=== PATIENT | male | born 1955 | race Caucasian/White ===

== ENCOUNTER 2023-11-07 19:28 | Inpatient (IN) | payer MEDICARE, OTHER, SELFPAY ==
--- NOTE | 2023-11-07 16:57 | HPS.HSE ---
Family Physician
-
Family Physician: INTERVIEWE UNKNOWN - PT NOT
Chief Complaint
-
gastric outlet obstruction
History of Present Illness
68 y/o M hx of Afib, glaucoma transferred from [facility] to For advanced endoscopic evaluation. Patient has a hx of GERD and recent experienced pressors in the upper abdomen after eating and also regurgitation. These symptoms improved with eating
smaller meals. He is known to GI and was planned for EGD/GES. On 11/05 he was admitted to [facility] for 2-3 day history of intractable n/v and pain. No blood was seen. He had normal BMs. Due to the chronic nature of symptoms,
patient lost 30 pounds in [address] imaging in [facility] showed dilated stomach with normal caliber SB concerning for GOO. 2 NGT placement attempts were unsuccessful.
Medical History
Past Medical History
Past Medical History: Reports Arrhythmia (Afib) and GERD
Past Surgical History: Reports Cholecystectomy
Social History
Tobacco: Former Smoker
Alcohol: None
Drug: None
Personal:
Family History
Family History: Cancer (Stomach cancer)
Allergies / Home Medications
Allergies reflects when Allergies were last updated in [facility].
Home Medications with original date entered in [facility]
Allergy/Medication List:
Allergies
Allergy/AdvReac Type Severity Reaction Status Date / Time
shellfish derived Allergy Mild Rash Verified 11/07/23 17:05
cardizem Allergy Severe Anaphylaxis Uncoded 11/07/23 17:05
Home Medications
brimonidine 0.2 %-timolol 0.5 % eye drops 1 drp ophthalmic (eye) BID 11/07/23
ferrous sulfate 325 mg (65 mg iron) tablet 325 mg PO DAILY 11/07/23
metoprolol tartrate 50 mg tablet (Lopressor) 25 mg PO DAILY 11/07/23
netarsudil 0.02 % eye drops (Rhopressa) 1 drp ophthalmic (eye) QPM 11/07/23
omeprazole 20 mg capsule,delayed release 20 mg PO DAILY 11/07/23
Review of Systems
-
A 12 point ROS was completed and negative except as noted: Yes
Physical Exam
Physical Exam
General: No Apparent Distress
HEENT: NormoCephalic and Anicteric
Respiratory: No Rales or Rhonchi
Cardiac: S1/S2 and Regular Rhythm
Musculoskeletal: No Clubbing
Neuro: AO x 3
Hematologic/Lymphatic: No Lymphadenopathy
Psych: Calm
Data Reviewed
-
Lab Data: Labs Reviewed by me
Old Records: Reviewed
Impression/Plan
-
Assessment:
Gastric outlet obstruction
- records reviewed; upload CT to radiology here for GI review
- consult GI for endoscopic evaluation
- 2x NGT placement failed @ [facility] to attempt again here
- strict NPO but ok for ice chips to moisten mouth
- pain control, anti-emetics
- PPI IV BID
Recent C. Diff infection
- complete 14 day Vanco course 1.5 months ago
- monitor for diarrhea
Parox Afib
- only rate controlled
- not on ASA or OAC (CHADSvasc 1)
DVT ppx: Lovenox
Code: Full
[2023-11-07 16:59] VITALS: BP 171/93
[2023-11-07] MEDS: D5/0.9% SODIUM CHLORIDE 1000 IV ×2 (17:41→20:29)
[2023-11-07] MEDS: MORPHINE SULFATE 2 MG IV (17:50)
[2023-11-07 17:55] VITALS: BMI 23.0
[2023-11-07 18:00] VITALS: BP 143/85
[2023-11-07 18:10] VITALS: BMI 23.0
[2023-11-07 18:43] LABS: % Basophils 0.2 % (0-2); % Eosinophils 10.5 % (0-6); % Immature Granulocytes 0.2 % (0-0.5); % Lymphocytes 22.1 % (20.5-51.1); % Monocytes 8.8 % (1.7-9.3); % Neutrophils 58.2 % (42.2-75.2); Absolute Eosinophils 0.6 10^3/uL (0-0.7); Absolute Lymphocytes 1.2 10^3/uL (1.2-3.4); Absolute Monocytes 0.5 10^3/uL (0.1-0.6); Absolute Neutrophils 3.1 10^3/uL (1.4-6.5); Hematocrit 40.8 % (39.0-52.0); Hemoglobin 14.4 g/dL (13.0-18.0); Mean Corp Hgb Conc. 35.3 g/dL (33.0-37.0); Mean Corpuscular Hgb 30.2 pg (27.0-31.0); Mean Corpuscular Volume 85.5 fL (80.0-94.0); Mean Platelet Volume 9.1 fL (7.4-10.4); Nucleated Red Blood Cells % 0 % (-); Platelet Count 199 10^3/uL (130-400); Red Blood Cell Count 4.77 10^6/uL (4.70-6.10); Red Cell Dist. Width 12.5 % (11.5-14.5); White Blood Cell Count 5.3 10^3/uL (4.8-10.8)
[2023-11-07 19:07] LABS: ALT (SGPT) 22 U/L (0-50); AST (SGOT) 36 U/L (17-59); Albumin 3.2 g/dl (3.5-5.0); Alkaline Phosphatase 68 U/L (38-126); Blood Urea Nitrogen 6 mg/dl (9-20); Calcium 8.7 mg/dl (8.4-10.2); Carbon Dioxide 25 mmol/L (22-30); Chloride 104 mmol/L (98-107); Estimated Creatinine Clearance > 125 ml/min; Glucose 90 mg/dl (70-99); Potassium 3.6 mmol/L (3.5-5.1); Sodium 137 mmol/L (135-145); Total Bilirubin 1.8 mg/dl (0.2-1.3); Total Protein 5.4 g/dl (6.3-8.2); eGFR > 60.00
--- NOTE | 2023-11-07 19:30 | PTCARENOTE ---
Patient arrived to unit at 1700 from [facility].
Patient here with gastric outlet syndrome/concern for obstruction, pending consultation by GI. [facility] to [facility] two NG Tubes.
This RN attempted R Nare NG Tube, 14fr. Successfully placed however no obvious bile. Abd XR obtained which revealed in distal esophagus, advanced further and bile now present in tube. Repeat Abd XR to be obtained.
[2023-11-07] MEDS: PROTONIX IV 40 MG IV (20:27)
[2023-11-07] MEDS: NSS (PRESERVATIVE FREE) 10 ML IV (20:28)
[2023-11-07] MEDS: COMBIGAN EYE DROPS 1 DROP OPHTH (20:28)
[2023-11-07 20:47] VITALS: BP 153/77
[2023-11-08] VITALS (7 sets, daily range): BP systolic 135–153; BP diastolic 60–88; BMI 23.0
[2023-11-08 06:21] LABS: % Basophils 0.4 % (0-2); % Eosinophils 10.1 % (0-6); % Immature Granulocytes 0.2 % (0-0.5); % Lymphocytes 17.9 % (20.5-51.1); % Monocytes 9.9 % (1.7-9.3); % Neutrophils 61.5 % (42.2-75.2); Absolute Eosinophils 0.6 10^3/uL (0-0.7); Absolute Monocytes 0.6 10^3/uL (0.1-0.6); Absolute Neutrophils 3.4 10^3/uL (1.4-6.5); Hematocrit 39.7 % (39.0-52.0); Hemoglobin 13.8 g/dL (13.0-18.0); Mean Corp Hgb Conc. 34.8 g/dL (33.0-37.0); Mean Corpuscular Hgb 30.7 pg (27.0-31.0); Mean Corpuscular Volume 88.2 fL (80.0-94.0); Mean Platelet Volume 9.2 fL (7.4-10.4); Nucleated Red Blood Cells % 0 % (-); Platelet Count 163 10^3/uL (130-400); Red Cell Dist. Width 12.5 % (11.5-14.5); White Blood Cell Count 5.5 10^3/uL (4.8-10.8)
[2023-11-08 06:50] LABS: ALT (SGPT) 18 U/L (0-50); AST (SGOT) 29 U/L (17-59); Albumin 2.8 g/dl (3.5-5.0); Alkaline Phosphatase 61 U/L (38-126); Blood Urea Nitrogen 6 mg/dl (9-20); Calcium 8.5 mg/dl (8.4-10.2); Carbon Dioxide 29 mmol/L (22-30); Chloride 103 mmol/L (98-107); Estimated Creatinine Clearance 112 ml/min; Glucose 92 mg/dl (70-99); Potassium 3.8 mmol/L (3.5-5.1); Sodium 137 mmol/L (135-145); Total Bilirubin 1.5 mg/dl (0.2-1.3); Total Protein 5.1 g/dl (6.3-8.2); eGFR > 60.00
[2023-11-08] MEDS: NSS (PRESERVATIVE FREE) 10 ML IV ×2 (07:46→19:22)
[2023-11-08] MEDS: PROTONIX IV 40 MG IV ×2 (07:47→19:22)
[2023-11-08] MEDS: COMBIGAN EYE DROPS 1 DROP OPHTH ×2 (07:48→21:00)
--- NOTE | 2023-11-08 08:29 | CON.GI ---
Addendum entered and electronically signed by Deshawn Yoder MD 11/08/23 17:25:
I saw and examined the patient.
The ELECTRON BEAM MACHINE WELDER SETTER or PA's note was reviewed and I agree with the note.
Comment: 68-year-old male past medical history of A-fib not on anticoagulation recently seen in GI as below with abdominal fullness and pressure after eating with gas and bloat. He then presented with acute abdominal pain starting on Wednesday after
eating with fullness. He was sent to [facility] where he underwent a CT scan which showed a gastric outlet obstruction. NG tube placement was unsuccessful. Both the patient and the GI doctor at [facility] Dr. Hung called me yesterday
about transferring the patient here to [facility]. They had limited capabilities in regards to doing an endoscopy for further evaluation. The compound machine operator was also concerned if he needed advanced endoscopy techniques he would be unable to be
done here. Therefore, I discussed with Dr. Yu our advanced endoscopist who agreed to accept the transfer. I discussed with the hospitalist as well. Our nurses were successful in placing the NG tube last night which helped with his fullness. Of
note, his pain did improve as well prior to being transferred. In review, his labs his CBC looks normal, LFTs significant for indirect hyperbilirubinemia.
At this time, plan is for upper endoscopy tomorrow. Risk, alternatives, benefits explained to patient and . He does ask if the can be called after the procedure. He will be scheduled with Dr. Yu tomorrow. Further recommendations
pending upper endoscopy. In the interim, keep patient n.p.o., NG tube to intermittent suction, PPI IV twice daily.
Addendum entered and electronically signed by Robina Shaw NP 11/08/23 13:01:
CT report from [facility] showing 'dilated stomach with air-fluid level and abrupt transition to normal caliber in the proximal duodenum. Mild wall thickening is suggested at the site of the transition. Tiny foci of air within the region
which appear to localize in the gastric lumen through the intramural location is difficult to exclude. Nonspecific fluid in the distal esophagus likely secondary to the distended stomach. Remaining duodenum and small bowel are normal in caliber.'
Original Note:
Consultation
-
Date/Time Consultation Requested: 11/07/2023 @ 16:54
Date/Time Consultation Performed: 11/08/23 @ 08:45
Requesting Provider: Dr. Terry
Performing Provider: DANNA Strong; Dr. Klaudia Yoder
Reason for Consultation: GOO
Medical History
Chief Complaint / HPI
Chief Complaint: gastric outlet obstruction
History of Present Illness:
The patient is a 68-year-old male with a past medical history significant for proximal atrial fibrillation not on anticoagulation, hypertriglyceridemia, glaucoma, GERD, recent Cdiff infection, who presented to the ER after transfer from [facility] for evaluation of gastric outlet obstruction, which we are being asked to evaluate for. The patient was recently seen by myself in the GI office on 10/29/2023 with complaints of abdominal fullness and pressure after eating along with
gas/bloating. He had been seen in the ER on October 05 secondary to ongoing diarrhea in which he underwent a CT of the abdomen and pelvis with IV and oral contrast which did not show any significant acute findings aside from a small hepatic cyst,
mild extrabiliary ductal dilation likely secondary to postcholecystectomy state, and prostatomegaly. He did have stool studies which did show C. difficile toxin positive and he was placed a 14-day course of vancomycin 3 times daily. Upon my
evaluation in the office his diarrhea had resolved and he was having formed bowel movements. Due to his reported weight loss and upper GI complaints he was ordered a gastric emptying study and to undergo an EGD for further evaluation of his
symptoms. He does have a history of duodenitis versus gastric emptying delay seen on prior upper GI in 2021. He was advised to continue on PPI as well. Today he reports on evening he notes that he had woken up from sleep feeling very
full in his abdomen. He denies any pain at that point but he did have to force vomiting which she has had to do intermittently in the past for ongoing symptoms. He reports after this he felt better and went back to sleep. He noticed Wednesday
morning he had a very large formed dark brown bowel movement and was feeling well. He denies any melena or hematochezia. He met with friends for lunch on Wednesday and did eat half of a chicken sandwich and Vietnamese fries and was feeling well until
around 3 PM when he developed the same pressure and fullness in his abdomen. He notes he pressure started in the mid upper abdomen which then radiated down below his sternum and to the left side. He then around 6 PM developed a sharp pain in his
abdomen feeling as if someone was stabbing him with a dagger. He notes that he also felt as though he was going to pass out, therefore his called EMS. He was taken to [facility] in which he received IV pain meds with resolution of his
pain. He underwent a CT scan and was told he had a dilated stomach and NG tube was attempted x 2 without success for placement. He was then transferred to [facility] for further evaluation. He notes some bleeding from his nose due to
multiple attempts at NG tube placement but denies any hematemesis or coffee-ground emesis. He denies any fevers or chills. He reports the pain he had felt was the worst pain he has ever felt but has not had any pain since Wednesday night. He denies
any NSAID use or alcohol use. Since his office visit to now he does not note any significant changes in his symptoms. CT imaging upload from [facility] is pending but per hospitalist showing dilated stomach with normal caliber SB. Routine labs in the
ER showed WBC 5.5, hgb 13.8, Na 137, K 3.8, BUN 6, Cr 0.7, TB 1.5, AST 29, ALT 18, Alk phos 61. He was made NPO. NG tube was placed for decompression, and he was admitted for further evaluation by GI.
Past Medical History
Past Medical History: Arrhythmias (not on AC), GERD and Other (elevated triglycerides, glaucome)
Past Surgical History: Cholecystectomy
Social History
Tobacco: Non-Smoker
Alcohol: None
Drug: None
Personal:
Living: With Family
Family History
Family History: Cancer (stomach CA-paternal uncle)
Allergies / Home Medications
Allergy/AdvReac Type Severity Reaction Status Date / Time
shellfish derived Allergy Mild Rash Verified 11/07/23 17:05
cardizem Allergy Severe Anaphylaxis Uncoded 11/07/23 17:05
Medication Instructions Recorded
brimonidine 0.2 %-timolol 0.5 % 1 drp ophthalmic (eye) BID 11/07/23
eye drops
ferrous sulfate 325 mg (65 mg 325 mg PO DAILY 11/07/23
iron) tablet
metoprolol tartrate 50 mg tablet 25 mg PO BID 11/07/23
(Lopressor)
netarsudil 0.02 % eye drops 1 drp ophthalmic (eye) QPM 11/07/23
(Rhopressa)
omeprazole 20 mg capsule,delayed 20 mg PO DAILY 11/07/23
release
Review of Systems
-
History Source: Patient
Constitutional: Reports Weight Loss and Sleep Disturbance
EENT: Reports No Symptoms
Respiratory: Reports No Symptoms
Cardiac: Reports No Symptoms
Abdomen/GI: Reports Abdominal Pain, Nausea and Vomiting
: Reports No Symptoms
Musculoskeletal: Reports No Symptoms
Skin: Reports No Symptoms
Neurological: Reports No Symptoms
Vital Signs
Temp Pulse Resp BP Pulse Ox
97.9 F 68 19 143/76 99
11/08/23 07:18 11/08/23 07:18 11/08/23 07:18 11/08/23 07:18 11/08/23 07:18
Physical Exam
Exam
General: Well Developed, Well Nourished and No Apparent Distress
HEENT: Normocephalic, Anicteric and Atraumatic
Respiratory: Clear
Cardiac: S1/S2 and Regular Rhythm
GI: Soft, Non Tender, Non Distended, Normal Bowel Sounds and Other (NG tube in place via right nare with clear output in tubing (cannister with coffee ground appearance))
Rectal: Deferred by Provider
Musculoskeletal: No Edema
Skin: Warm and Dry
Neuro: Awake, Alert and Oriented
Psych: Calm
Results
WBC 5.5 10^3/uL (4.8-10.8) 11/08/23 05:35
Hgb 13.8 g/dL (13.0-18.0) 11/08/23 05:35
Hct 39.7 % (39.0-52.0) 11/08/23 05:35
MCV 88.2 fL (80.0-94.0) 11/08/23 05:35
Plt Count 163 10^3/uL (130-400) 11/08/23 05:35
Absolute Neuts (auto) 3.4 10^3/uL (1.4-6.5) 11/08/23 05:35
Sodium 137 mmol/L (135-145) 11/08/23 05:35
Potassium 3.8 mmol/L (3.5-5.1) 11/08/23 05:35
Chloride 103 mmol/L (98-107) 11/08/23 05:35
Carbon Dioxide 29 mmol/L (22-30) 11/08/23 05:35
BUN 6 mg/dl (9-20) L 11/08/23 05:35
Creatinine 0.7 mg/dL (0.7-1.3) 11/08/23 05:35
Calcium 8.5 mg/dl (8.4-10.2) 11/08/23 05:35
Total Bilirubin 1.5 mg/dl (0.2-1.3) H 11/08/23 05:35
AST 29 U/L (17-59) 11/08/23 05:35
ALT 18 U/L (0-50) 11/08/23 05:35
Alkaline Phosphatase 61 U/L (38-126) 11/08/23 05:35
Diagnostic Image Results:
11/07/2023 XR abdomen: Nasogastric tube has been advanced and now appears to be well-positioned with the tip projecting over the gastric fundus.
10/05/2023 CT A/P w/IV and oral contrast: No significant acute abnormality identified in the abdomen or pelvis
Prior GI Procedures:
EGD: remote hx
Colonoscopy: cologuard negative 2021
Assessment / Plan
-
The patient is a 68-year-old male with a past medical history significant for proximal atrial fibrillation not on anticoagulation, hypertriglyceridemia, glaucoma, GERD, recent Cdiff infection, who presented to the ER after transfer from [facility] for evaluation of gastric outlet obstruction, which we are being asked to evaluate for. Recent evaluation in the GI office for abdominal pressure, forced regurgitation, and gassiness, pending OP GES and EGD, had recurrent symptoms after
eating lunch on Wednesday with development of severe pain which is new. CT imaging was done at [facility] where he was initially evaluation, which showed a dilated stomach (per hospitalist notes). He had an NG tube placed for decompression and he feels
much improved. No further reports of pain. Labs are essentially WNL.
Problem list:
-stomach dilation on CT imaging, ?GOO
-abdominal pressure/bloating/early satiety
-weight loss
-recent C-diff infection
-hx GERD
-elevated TB with normal DB
Other medical hx:
-glaucoma
-Afib (not on AC)
-s/p CCY
Recommendations:
-Etiology of current symptoms possibly secondary to GOO due to to postinfectious gastroparesis versus acute obstructive process versus PUD (no NSAID's to suggest this) versus other. Cannot rule out malignancy with history of weight loss as well.
-Will review CT imaging with Dr. Yoder and obtain records from [facility]. CT imaging from 10/05 per radiology with no acute findings in the abdomen or pelvis. TT to radiology to review CT scan in [facility].
-Plan for EGD with possible intervention tomorrow with Dr. Yu if needed. The pt is agreeable to this.
-Continue NPO with NG tube for decompression
-Limit narcotics as able
-PRN antiemetics
-PPI
-Will follow
-
-
Thank you for consultation and allowing me to participate in the patient's care. Please call the business continuity global director GI physician during the after hours with any questions or concerns.
[2023-11-08] MEDS: LOPRESSOR 5 MG IV ×4 (08:58→23:35)
[2023-11-08 09:31] LABS: Direct Bilirubin 0.3 mg/dl (0.0-0.4)
[2023-11-08] MEDS: D5/0.9% SODIUM CHLORIDE 1000 IV (11:01)
--- NOTE | 2023-11-08 12:18 | W.PN.HOSP.TC ---
Today's Communication/Plan
-
continue NGT decompression
EGD possibly tomorrow
Assessment / Plan
Assessment / Plan
Assessment:
Gastric outlet obstruction
- records reviewed; upload CT to radiology here for GI review
- NGT Placed; continue decompression
- GI following for EGD in 24 hours
- strict NPO but ok for ice chips to moisten mouth
- continue IVF
- pain control, anti-emetics
- PPI IV BID
Recent C. Diff infection
- complete 14 day Vanco course 1.5 months ago
- monitor for diarrhea
Parox Afib
- only rate controlled on BB
- IV standing BB while NPO
- not on ASA or OAC (CHADSvasc 1)
DVT ppx: Lovenox
Code: Full
Anticipated Discharge: > 48 hours
Subjective/Interval History
-
Date of Service: November 08, 2023
NGT placed last evening and now decompressing stomach
patient denies any complaints currently
Objective Data
-
Labs:
Laboratory Results
11/08/23
05:35
WBC 5.5
Hgb 13.8
Hct 39.7
Plt Count 163
Sodium 137
Potassium 3.8
Chloride 103
Carbon Dioxide 29
BUN 6 L
Creatinine 0.7
Glucose 92
Calcium 8.5
Total Bilirubin 1.5 H
AST 29
ALT 18
Alkaline Phosphatase 61
Vital Signs:
Vital Signs
Temp Pulse Resp BP Pulse Ox
98.1 F 67 19 144/78 99
11/08/23 11:27 11/08/23 11:27 11/08/23 11:27 11/08/23 11:27 11/08/23 11:27
I&O
11/07/23 11/08/23 11/09/23
06:59 06:59 06:59
Intake Total 750 / 750
Output Total 200 / 200
Balance 550 / 550
Physical Exam
-
General: No Apparent Distress
HEENT: Normocephalic and Atraumatic
Respiratory: Negative Wheezes or Rales
Cardiac: Regular Rhythm and S1/S2
GI: Soft, Nontender and Other (NGT in place)
Musculoskeletal: No Edema
Neuro: AO x 3
Hematologic / Lymphatic: No Lymphadenopathy
Psych: Calm
Data Reviewed
-
Total Time Spent with Patient (in minutes): 45
Labs: Labs Reviewed by me
--- NOTE | 2023-11-08 17:01 | CM ---
Attempted initial assessment x2. Patient unavailable. Was transferred from [facility] for advanced Endoscopic evaluation. Will continue to follow.
[2023-11-08] MEDS: LOVENOX SC (17:37)
--- NOTE | 2023-11-08 19:50 | PTCARENOTE ---
Patient's IV sites assessed. D5/0.9%NaCl infusing in #20 LFA- proximal to site appears red. Fluids stopped and site removed. IVF restarted with new tubing to #20 RFA.
[2023-11-09] VITALS (14 sets, daily range): BP systolic 93–154; BP diastolic 59–83
[2023-11-09] MEDS: D5/0.9% SODIUM CHLORIDE 1000 IV (05:16)
[2023-11-09] MEDS: LOPRESSOR 5 MG IV ×4 (06:01→23:46)
[2023-11-09 06:52] LABS: % Basophils 0.3 % (0-2); % Eosinophils 6.4 % (0-6); % Immature Granulocytes 0.3 % (0-0.5); % Monocytes 8.7 % (1.7-9.3); % Neutrophils 69.3 % (42.2-75.2); Absolute Eosinophils 0.4 10^3/uL (0-0.7); Absolute Monocytes 0.6 10^3/uL (0.1-0.6); Absolute Neutrophils 4.6 10^3/uL (1.4-6.5); Hemoglobin 14.1 g/dL (13.0-18.0); Mean Corp Hgb Conc. 34.4 g/dL (33.0-37.0); Mean Corpuscular Hgb 29.7 pg (27.0-31.0); Mean Corpuscular Volume 86.3 fL (80.0-94.0); Mean Platelet Volume 9.5 fL (7.4-10.4); Nucleated Red Blood Cells % 0 % (-); Platelet Count 189 10^3/uL (130-400); Red Blood Cell Count 4.75 10^6/uL (4.70-6.10); Red Cell Dist. Width 12.3 % (11.5-14.5); White Blood Cell Count 6.7 10^3/uL (4.8-10.8)
[2023-11-09 06:59] LABS: ALT (SGPT) 19 U/L (0-50); AST (SGOT) 27 U/L (17-59); Albumin 2.9 g/dl (3.5-5.0); Alkaline Phosphatase 66 U/L (38-126); Blood Urea Nitrogen 7 mg/dl (9-20); Calcium 8.6 mg/dl (8.4-10.2); Carbon Dioxide 26 mmol/L (22-30); Chloride 102 mmol/L (98-107); Estimated Creatinine Clearance > 125 ml/min; Glucose 83 mg/dl (70-99); Potassium 3.6 mmol/L (3.5-5.1); Sodium 137 mmol/L (135-145); Total Bilirubin 1.9 mg/dl (0.2-1.3); Total Protein 5.2 g/dl (6.3-8.2); eGFR > 60.00
[2023-11-09] MEDS: PROTONIX IV 40 MG IV ×2 (08:24→20:32)
[2023-11-09] MEDS: COMBIGAN EYE DROPS 1 DROP OPHTH ×2 (08:24→20:32)
[2023-11-09] MEDS: NSS (PRESERVATIVE FREE) 10 ML IV ×2 (08:24→20:32)
--- NOTE | 2023-11-09 08:41 | W.PN.HOSP.TC ---
Today's Communication/Plan
-
EGD today
Assessment / Plan
Assessment / Plan
Assessment:
Gastric outlet obstruction
- CT report from [facility] showed 'dilated stomach with air-fluid level and abrupt transition to normal caliber in the proximal duodenum.� Mild wall thickening is suggested at the site of the transition.� Tiny foci of air within the region
which appear to localize in the gastric lumen through the intramural location is difficult to exclude.� Nonspecific fluid in the distal esophagus likely secondary to the distended stomach.� Remaining duodenum and small bowel are normal in caliber.'
- NGT Placed; continue decompression
- GI following for EGD today
- strict NPO but ok for ice chips to moisten mouth
- continue IVF
- pain control, anti-emetics
- PPI IV BID
Recent C. Diff infection
- complete 14 day Vanco course 1.5 months ago
- monitor for diarrhea
Parox Afib
- goes in and out of A. Fib on tele here
- only rate controlled on oral Metoprolol; continue IV standing Metoprolol while NPO
- not on ASA or OAC (CHADSvasc 1) per mutual discussion with his outpatient Manager Statistical Programming Dr. Guaman. His next appointment is late November.
DVT ppx: Lovenox
Code: Full
Anticipated Discharge: 24 - 48 hours
Subjective/Interval History
-
Date of Service: November 09, 2023
no complaints at present
goes in and out of A. Fib
Objective Data
-
Labs:
Laboratory Results
11/09/23
05:47
WBC 6.7
Hgb 14.1
Hct 41.0
Plt Count 189
Sodium 137
Potassium 3.6
Chloride 102
Carbon Dioxide 26
BUN 7 L
Creatinine 0.6 L
Glucose 83
Calcium 8.6
Total Bilirubin 1.9 H
AST 27
ALT 19
Alkaline Phosphatase 66
Vital Signs:
Vital Signs
Temp Pulse Resp BP Pulse Ox
98.0 F 67 16 146/76 96
11/09/23 07:06 11/09/23 07:06 11/09/23 07:06 11/09/23 07:06 11/09/23 07:06
I&O
11/08/23 11/09/23 11/10/23
06:59 06:59 06:59
Intake Total 750 / 750 1770 / 1770
Output Total 200 / 200 200 / 200
Balance 550 / 550 1570 / 1570
Physical Exam
-
General: No Apparent Distress
HEENT: Normocephalic and Atraumatic
Respiratory: Negative Wheezes or Rales
Cardiac: Irregular Rhythm
GI: Soft
Genito-urinary: No Costovertebral Tender
Neuro: AO x 3
Hematologic / Lymphatic: No Lymphadenopathy
Psych: Calm
Data Reviewed
-
Total Time Spent with Patient (in minutes): 45
Labs: Labs Reviewed by me
--- NOTE | 2023-11-09 09:56 | CM ---
Initial assessment completed with patient who lives with his in a 2 story home with B/B on 2nd and 1/2 bath on 1st, No DME, no in-home services, has health care directive and placed in chart, support system is , Pharmacy is [facility] [place] [facility], PCP is Dr. Heath Colin with [facility]. Anticipate home with no needs. Will continue to follow should needs change.
--- NOTE | 2023-11-09 18:41 | PTCARENOTE ---
Pt arrived to 2 [address] from PACU s/p EGD. Pt NGT removed prior to arriving to floor.
Pt states no pain or nausea at this time.
Pt re-oriented to call westfall and room, bed locked and in lowest position, call westfall within reach.
--- NOTE | 2023-11-09 18:42 | PTCARENOTE ---
Pt arrived to 2 [address] from PACU s/p EGD. Pt NGT removed prior to arriving to floor. Pt states no pain or nausea at this time.
Pt re-oriented to call westfall and room, bed locked and in lowest position, call westfall within reach.
[2023-11-09] MEDS: LOVENOX 40 MG SC (18:45)
--- NOTE | 2023-11-09 18:48 | PTCARENOTE ---
Patient back on 2S from procedure. VSS.
[2023-11-10] VITALS (10 sets, daily range): BP systolic 112–142; BP diastolic 58–94; PULSE 69–134
--- NOTE | 2023-11-10 04:21 | DOWNTIME ---
There was a [employer] Downtime on 11/10/2023 from 0111 to 11/10/2023 at 0405. Downtime documentation of patient's care, including medication administrations, has been reconciled in the electronic record per guidelines. Refer to the
patient's paper chart under the miscellaneous tab to see printed paper medication records and downtime forms.
[2023-11-10 05:55] LABS: % Basophils 0.8 % (0-2); % Eosinophils 6.6 % (0-6); % Immature Granulocytes 0.3 % (0-0.5); % Lymphocytes 23.4 % (20.5-51.1); % Monocytes 10.8 % (1.7-9.3); % Neutrophils 58.1 % (42.2-75.2); Absolute Basophils 0.1 10^3/uL (0-0.2); Absolute Eosinophils 0.4 10^3/uL (0-0.7); Absolute Lymphocytes 1.5 10^3/uL (1.2-3.4); Absolute Monocytes 0.7 10^3/uL (0.1-0.6); Absolute Neutrophils 3.6 10^3/uL (1.4-6.5); Hematocrit 39.5 % (39.0-52.0); Hemoglobin 13.8 g/dL (13.0-18.0); Mean Corp Hgb Conc. 34.9 g/dL (33.0-37.0); Mean Corpuscular Hgb 30.1 pg (27.0-31.0); Mean Corpuscular Volume 86.1 fL (80.0-94.0); Mean Platelet Volume 9.6 fL (7.4-10.4); Nucleated Red Blood Cells % 0 % (-); Platelet Count 198 10^3/uL (130-400); Red Blood Cell Count 4.59 10^6/uL (4.70-6.10); Red Cell Dist. Width 12.5 % (11.5-14.5); White Blood Cell Count 6.2 10^3/uL (4.8-10.8)
[2023-11-10] MEDS: LOPRESSOR 5 MG IV (05:57)
[2023-11-10] MEDS: TYLENOL 650 MG PO (06:12)
[2023-11-10 06:35] LABS: ALT (SGPT) 20 U/L (0-50); AST (SGOT) 26 U/L (17-59); Alkaline Phosphatase 73 U/L (38-126); Blood Urea Nitrogen 7 mg/dl (9-20); Calcium 8.2 mg/dl (8.4-10.2); Carbon Dioxide 26 mmol/L (22-30); Chloride 105 mmol/L (98-107); Estimated Creatinine Clearance 112 ml/min; Glucose 70 mg/dl (70-99); Potassium 3.3 mmol/L (3.5-5.1); Sodium 135 mmol/L (135-145); Total Bilirubin 1.9 mg/dl (0.2-1.3); Total Protein 5.2 g/dl (6.3-8.2); eGFR > 60.00
[2023-11-10] MEDS: KCL 20 MEQ PO (08:36)
[2023-11-10] MEDS: COMBIGAN EYE DROPS 1 DROP OPHTH ×2 (08:36→23:15)
[2023-11-10] MEDS: NSS (PRESERVATIVE FREE) 10 ML IV ×2 (08:37→21:44)
[2023-11-10] MEDS: PROTONIX IV 40 MG IV ×2 (08:37→21:43)
[2023-11-10] MEDS: FLUSH (NSS) 2 FLUSH IV (08:39)
--- NOTE | 2023-11-10 09:55 | W.PN.GI.CBS2 ---
Addendum entered and electronically signed by Kiera Rai Do, MD 11/10/23 14:00:
I saw and examined the patient.
The CHILD MONITOR's note was reviewed and I agree with the note.
Comment: He c/o headache and palpitations today. Denies abd pain. tolerating full liquid diet. Vitals with HR 160s. NTTP, NABS. Labs reviewed.
Recommendations
- C/w FLD, anticipate advancement to soft diet tomorrow
- S/p EGD with dilation of GOO 11/09
- Await pathology results
- C/w PPI BID
- No contraindication for AC if deemed necessary by cardiology
Will follow with you
Original Note:
Today's Communication / Plan
-
Improved s/p EGD with dilation yesterday
NG tube removed
Tolerating clears, will advance to full liquid diet
continue PPI
Assessment / Plan
-
The patient is a 68-year-old male with a past medical history significant for proximal atrial fibrillation not on anticoagulation, hypertriglyceridemia, glaucoma, GERD, recent Cdiff infection, who presented to the ER after transfer from [facility] for evaluation of gastric outlet obstruction, which we are being asked to evaluate for. Recent evaluation in the GI office for abdominal pressure, forced regurgitation, and gassiness, pending OP GES and EGD, had recurrent symptoms after
eating lunch on Wednesday with development of severe pain which is new. CT imaging was done at [place] where he was initially evaluation, which showed a dilated stomach (per hospitalist notes). He had an NG tube placed for decompression and he feels
much improved. No further reports of pain. Labs are essentially WNL.
EGD with dilation 11/09/23, Dr. Yu:
Findings:
�� � LA Grade C (one or more mucosal breaks continuous between tops of 2 or
�� � more mucosal folds, less than 75% circumference) esophagitis was found
�� � in the lower third of the esophagus.
�� � A benign-appearing, intrinsic severe stenosis was found at the pylorus.
�� � This was traversed after downsizing the scope to pediatric gastroscope.
�� � Biopsies were taken with a cold forceps for histology. A TTS dilator was
�� � passed through the scope. Dilation with a 6-7-8 mm, a 10-11-12 mm and a
�� � 12-13.5-15 mm pyloric balloon dilator was performed. The adult
�� � gastroscope was able to traverse the pylorus after.
�� � The duodenal bulb, first portion of the duodenum and second portion of
�� � the duodenum were normal.
�� � � � � � � � � � � � � � � � � � � � � � � � � � � � � � � � � � � � � � �
Impression:� � � � � � - LA Grade C reflux esophagitis.
�� � � � � � � � � � � - Gastric stenosis was found at the pylorus. Biopsied.
�� � � � � � � � � � � Dilated.
�� � � � � � � � � � � - Normal duodenal bulb, first portion of the duodenum
�� � � � � � � � � � � and second portion of the duodenum.
Recommendation:� � � � - [facility] for [facility] care.
�� � � � � � � � � � � - Full liquid diet today.
�� � � � � � � � � � � - Use Protonix (pantoprazole) 40 mg PO BID.
�� � � � � � � � � � � - Await pathology results.
�� � � � � � � � � � � - Return to GI office in 3 weeks.
Problem list:
-stomach dilation on CT imaging, ?GOO
-abdominal pressure/bloating/early satiety
-weight loss
-recent C-diff infection
-hx GERD
-elevated TB with normal DB
Other medical hx:
-glaucoma
-Afib (not on AC)
-s/p CCY
Recommendations:
-EGD yesterday with Dr. Yu showed intrinsic severe pyloric stenosis, which was dilated to 15mm, as well as LA Grade C esophagitis. Biopsies pending.
-NG tube removed
-Patient reports significant symptomatic improvement post-dilation
-Tolerated clear liquids last night, will advance to full liquid diet
-Continue PPI BID
-Limit narcotics as able
-Recent C diff infection but no recurrence of diarrhea
-Recommend outpatient GI follow-up in 3 weeks
Subjective
Subjective
Date of Service: November 10, 2023
Feeling much better, the abdominal fullness has resolved post-dilation.
He tolerated clear liquids last night.
Denies abdominal pain, nausea, vomiting, diarrhea, constipation or fever/chills.
Objective
Data Reviewed
Laboratory Data:
Laboratory Results
11/10/23 05:15
11/10/23 05:15
Laboratory Results
Total Bilirubin 1.9 mg/dl (0.2-1.3) H 11/10/23 05:15
AST 26 U/L (17-59) 11/10/23 05:15
ALT 20 U/L (0-50) 11/10/23 05:15
Alkaline Phosphatase 73 U/L (38-126) 11/10/23 05:15
Vital Signs and I&O:
Vital Signs
Temp Pulse Resp BP Pulse Ox
98.2 F 61 18 112/58 97
11/10/23 08:00 11/10/23 08:00 11/10/23 08:00 11/10/23 08:00 11/10/23 08:00
I&O
11/09/23 11/10/23 11/11/23
06:59 06:59 06:59
Intake Total 1770 / 1770 120 / 120
Output Total 200 / 200
Balance 1570 / 1570 120 / 120
Physical Exam
Physical Exam
Cardiology: Normal Sinus Rhythm
Pulmonary: Clear
GI: Soft, Non Distended, Non Tender and Normal Bowel Sounds
--- NOTE | 2023-11-10 10:27 | W.PN.HOSP.TC ---
Today's Communication/Plan
-
monitor vitals
see plan
dizzy with in and out afib; cards eval
replete K; check magnesium
check EKG
check orthos
now on fulls
Assessment / Plan
Assessment / Plan
Assessment:
Gastric outlet obstruction
- CT report from [facility] showed 'dilated stomach with air-fluid level and abrupt transition to normal caliber in the proximal duodenum.� Mild wall thickening is suggested at the site of the transition.� Tiny foci of air within the region
which appear to localize in the gastric lumen through the intramural location is difficult to exclude.� Nonspecific fluid in the distal esophagus likely secondary to the distended stomach.� Remaining duodenum and small bowel are normal in caliber.'
- NGT Placed; continue decompression
- GI following for EGD today; s/p pylorous dilation. now on fulls. GI following
- pain control, anti-emetics
- PPI BID
Recent C. Diff infection
- complete 14 day Vanco course 1.5 months ago
- monitor for diarrhea
Parox Afib
- goes in and out of A. Fib on tele here; episode of dizziness
- only rate controlled on oral Metoprolol; change IV to PO; check EKG. consult cardiology
- not on ASA or OAC (CHADSvasc 1) per mutual discussion with his outpatient Platform Man Dr. Guaman. His next appointment is late November.
Hypokalemia
Replete
Check magnesium
DVT ppx: Lovenox
Code: Full
General: No Apparent Distress
HEENT: Normocephalic and Atraumatic
Respiratory: Negative Wheezes or Rales
Cardiac: Irregular Rhythm
GI: Soft
Genito-urinary: No Costovertebral Tender
Neuro: AO x 3
Hematologic / Lymphatic: No Lymphadenopathy
Psych: Calm
I spent a total of 52 minutes with the patient or on the floor. More than 50% of this time involved counseling and coordination of care.
Anticipated Discharge: Within 24 hours
Subjective/Interval History
-
Date of Service: November 10, 2023
denies pain
Objective Data
-
Labs:
Laboratory Results
11/10/23
05:15
WBC 6.2
Hgb 13.8
Hct 39.5
Plt Count 198
Sodium 135
Potassium 3.3 L
Chloride 105
Carbon Dioxide 26
BUN 7 L
Creatinine 0.7
Glucose 70
Calcium 8.2 L
Total Bilirubin 1.9 H
AST 26
ALT 20
Alkaline Phosphatase 73
Vital Signs:
Vital Signs
Temp Pulse Resp BP Pulse Ox
98.2 F 61 18 112/58 97
11/10/23 08:00 11/10/23 08:00 11/10/23 08:00 11/10/23 08:00 11/10/23 08:00
I&O
11/09/23 11/10/23 11/11/23
06:59 06:59 06:59
Intake Total 1770 / 1770 120 / 120
Output Total 200 / 200
Balance 1570 / 1570 120 / 120
[2023-11-10] MEDS: KCL 270 MEQ IV (10:47)
[2023-11-10] MEDS: FLUSH (NSS) 1 FLUSH IV (10:47)
[2023-11-10 11:04] LABS: Magnesium 1.9 mg/dl (1.6-2.3)
[2023-11-10] MEDS: LOPRESSOR 25 MG PO ×2 (11:29→14:30)
--- NOTE | 2023-11-10 11:31 | CON.CAR ---
Addendum entered and electronically signed by John Guaman MD 11/10/23 14:09:
I saw and examined the patient.
The SAW FEEDER's note was reviewed and I agree with the note.
Comment: I recently met the patient in the office for his new AFib/AFlutter. Dilt improved symptoms well but he had rash and tongue swelling. Now on low dose metoprolol and prior to admit had mild palps ( more than on the low dose dilt). He is now
in with pyloric stenosis/obstruction of not entirely clear etiology. His AFib/AFlutter are more active. Tele also shows runs of fast Atach with aberration. Recent stress test and echo are unremarkable. Some elevated blood pressure readings here do
not establish a dx of HTN but BP will need to be followed. CHADS2-VASc is just one for age alone. No anticoagulation is acceptable and ASA is not used for stroke prevention. For now we will go to metoprolol ER 50 BID and plan to send him home on
the increased dose. Once his GI issues are resolved he may pursue elective abltation. His EKG is abnormal and that may be related his hypokalemia causing QT prolongation. Not a good time to add an AAD (antiarrhythmic drug).
Original Note:
Consultation
Consultation Request
Date/Time Consultation Requested: 11/10/23 1034
Date/Time Consultation Performed: 11/10/23 1045
Requesting Provider: Dr. Chávez
Performing Provider: Esthela CLAY for Dr. Guaman
Reason for Consultation: AFIB
Medical History
-
Chief Complaint: abdominal pain
History of Present Illness:
68 y/o male with paroxysmal atrial fibrillation, atrial flutter, hx CDIFF, and GERD who presented for evaluation of severe abdominal pain, with N/V. He was seen (in [place]) to have gastric outlet obstruction and transferred here for further
management. Here, an EGD revealed esophagitis and gastric stenosis found at pylorus improved s/p EGD with dilation. We are consulted due to paroxysmal AFIB with RVR, which is symptomatic with palps and dizziness at times. He has hypokalemia, which
is being replaced. Otherwise he is on metoprolol 25 mg PO BID as OP, but has been on IV metoprolol here due to NPO status.
Past Medical History
Past Medical History: Arrhythmias and GERD
Social History
Tobacco: Former Smoker
Alcohol: Occasional
Personal:
Family History
Family History: Reviewed & Not Pertinent
Allergies / Home Medications
Allergy/AdvReac Type Severity Reaction Status Date / Time
shellfish derived Allergy Mild Rash Verified 11/07/23 17:05
cardizem Allergy Severe Anaphylaxis Uncoded 11/07/23 17:05
Medication Instructions Recorded Confirmed Type
brimonidine 0.2 %-timolol 0.5 % 1 drp ophthalmic (eye) BID Eye 11/07/23 11/07/23 History
eye drops Condition
ferrous sulfate 325 mg (65 mg 325 mg PO DAILY Supplement 11/07/23 11/07/23 History
iron) tablet
metoprolol tartrate 50 mg tablet 25 mg PO BID Blood Pressure 11/07/23 11/08/23 History
(Lopressor)
netarsudil 0.02 % eye drops 1 drp ophthalmic (eye) QPM Eye 11/07/23 11/07/23 History
(Rhopressa) Condition
omeprazole 20 mg capsule,delayed 20 mg PO DAILY Gastrointestinal 11/07/23 11/07/23 History
release Issue
Review of Systems
-
History Source: Patient
All other systems: Negative unless noted
Abdomen/GI: Abdominal Pain, Nausea and Vomiting
Physical Exam
Vital Signs
Temp Pulse Resp BP Pulse Ox
97.3 F 162 18 142/76 99
11/10/23 11:23 11/10/23 11:23 11/10/23 11:23 11/10/23 11:23 11/10/23 11:23
Lab Results
11/10/23 05:15
11/10/23 05:15
Physical Exam
General: Well Developed, Well Nourished and No Apparent Distress
HEENT: Normocephalic and Anicteric
Respiratory: Clear and Non Labored Respirations
Cardiac: Regular Rhythm
Musculoskeletal: No Edema
Neuro: AO x 3
Psych: Calm
Impression / Plan
-
Gastric outlet obstruction:
-s/p pylorus dilation
-management per GI
-esophagitis also noted. Patient on IV PPI.
Paroxysmal AFIB, atrial tachycardia, hx atrial flutter (type unknown):
-symptomatic with palpitations, dizziness
-PO BB resumed. Increase dose and follow telemetry. Of note, he had tongue/lip swelling with diltiazem.
-[id number] score is 1 for age and he is not on OAC
-can consider AAD or ablation, will review with his portfolio accountant/EP, Dr. Guaman. Repeat EKG in AM.
Hypokalemia:
-being replaced
-follow closely
Data Reviewed
-
EKG: Tracing Personally Visualized and interpreted (sinus complexes and atrial tachycardia 153 BPM)
Medical Tests (Nuc Med, Echo etc): Report Reviewed by me (09/08/23: Normal biventricular size and systolic function without regional wall motion abnormality. Mild aortic regurgitation.) and Other (stress test 08/30/23: No evidence of ischemia.
Frequent ectopy)
Labs: Labs Reviewed by me
[2023-11-10] MEDS: MAGNESIUM SULFATE 102 GRAMS IV (14:30)
--- NOTE | 2023-11-10 15:30 | CM ---
Chart reviewed
Spoke with pt at bedside
Reports was seen by cardiology - dizziness
CM will follow for d/c needs
Plan - anticipate home no needs
[2023-11-10] MEDS: LOVENOX 40 MG SC (17:53)
[2023-11-10] MEDS: LOPRESSOR 50 MG PO (21:43)
[2023-11-11 03:46] VITALS: BP 101/55
[2023-11-11 05:11] LABS: % Basophils 0.7 % (0-2); % Eosinophils 8.8 % (0-6); % Immature Granulocytes 0.2 % (0-0.5); % Lymphocytes 35.7 % (20.5-51.1); % Monocytes 11.4 % (1.7-9.3); % Neutrophils 43.2 % (42.2-75.2); Absolute Eosinophils 0.4 10^3/uL (0-0.7); Absolute Lymphocytes 1.6 10^3/uL (1.2-3.4); Absolute Monocytes 0.5 10^3/uL (0.1-0.6); Hemoglobin 14.4 g/dL (13.0-18.0); Mean Corp Hgb Conc. 35.1 g/dL (33.0-37.0); Mean Corpuscular Hgb 30.7 pg (27.0-31.0); Mean Corpuscular Volume 87.4 fL (80.0-94.0); Mean Platelet Volume 9.7 fL (7.4-10.4); Nucleated Red Blood Cells % 0 % (-); Platelet Count 187 10^3/uL (130-400); Red Blood Cell Count 4.69 10^6/uL (4.70-6.10); Red Cell Dist. Width 12.9 % (11.5-14.5); White Blood Cell Count 4.6 10^3/uL (4.8-10.8)
[2023-11-11 05:54] LABS: ALT (SGPT) 17 U/L (0-50); AST (SGOT) 24 U/L (17-59); Albumin 2.8 g/dl (3.5-5.0); Alkaline Phosphatase 59 U/L (38-126); Blood Urea Nitrogen 5 mg/dl (9-20); Calcium 8.7 mg/dl (8.4-10.2); Carbon Dioxide 30 mmol/L (22-30); Chloride 101 mmol/L (98-107); Estimated Creatinine Clearance > 125 ml/min; Glucose 89 mg/dl (70-99); Potassium 4.3 mmol/L (3.5-5.1); Sodium 137 mmol/L (135-145); Total Bilirubin 1.2 mg/dl (0.2-1.3); Total Protein 5.1 g/dl (6.3-8.2); eGFR > 60.00
[2023-11-11 07:09] VITALS: BP 116/74
--- NOTE | 2023-11-11 08:18 | W.PN.CD ---
Today's Communication / Plan
-
- Stable from cardiac stand point
- Please call us with questions.
Impression / Plan
-
Gastric outlet obstruction:
-s/p pylorus dilation
-management per GI
-esophagitis also noted. Patient on IV PPI.
Paroxysmal AFIB, atrial tachycardia, hx atrial flutter (type unknown):
-symptomatic with palpitations, dizziness
-PO BB resumed. Increase dose and follow telemetry. Of note, he had tongue/lip swelling with diltiazem.
-[id number] score is 1 for age and he is not on OAC
-Right now in sinus rhythm with PACs - Continue Metoprolol.
-From Metoprolol 25 BID to 50 mg BID
-Outpatient follow up with Dr. Guaman and if interested in ablation then see me as a consult.
Hypokalemia:
-s/p replaced
Physical Exam
Vital Signs/Labs
Vital Signs
Temp Pulse Resp BP Pulse Ox
97.5 F 68 18 116/74 98
11/11/23 07:09 11/11/23 07:09 11/11/23 07:09 11/11/23 07:09 11/11/23 07:09
11/11/23 04:47
11/11/23 04:47
Magnesium 1.9 mg/dl (1.6-2.3) 11/10/23 05:15
Physical Exam
Constitutional: No acute distress and Comfortable
EENT: Anicteric and Moist mucous membranes
Cardiovascular: Rhythm & rate is regular, Pedal edema is absent and JVD pressure is normal
Respiratory: Respiratory effort normal, Lungs clear to auscul., Wheeze Absent and Crackles Absent
GI: Soft and Non tender
Neuro/Psych: Alert, Oriented and AO x 3
Data Reviewed
-
Date of Service: November 11, 2023
Medical Decision Making: Reviewed Test Results, Independent Historian Assessment, Test Interpretation and Review of Case with other Provider
EKG: Tracing Personally Visualized and interpreted
Echo: Report Reviewed by me
Medical Tests (PFT, Pathology etc): Image Personally Visualized and interpreted
Labs: Labs Reviewed by me
Old Records: Reviewed
[2023-11-11] MEDS: COMBIGAN EYE DROPS 1 DROP OPHTH (08:58)
[2023-11-11] MEDS: LOPRESSOR 50 MG PO (08:58)
[2023-11-11] MEDS: NSS (PRESERVATIVE FREE) 10 ML IV (09:01)
[2023-11-11] MEDS: PROTONIX IV 40 MG IV (09:01)
--- NOTE | 2023-11-11 09:43 | W.PN.HOSP.TC ---
Addendum entered and electronically signed by Montez Chávez MD 11/11/23 13:23:
Patient tolerated Low res diet. Will discharge patient with PPI twice daily. Also on increased dose of metoprolol.
Time of discharge 37 minutes
Original Note:
Today's Communication/Plan
-
Monitor vital signs and see plan
GI to see today
Heart rates better, continue with metoprolol
Assessment / Plan
Assessment / Plan
Assessment:
Gastric outlet obstruction
- CT report from [facility] showed 'dilated stomach with air-fluid level and abrupt transition to normal caliber in the proximal duodenum.� Mild wall thickening is suggested at the site of the transition.� Tiny foci of air within the region
which appear to localize in the gastric lumen through the intramural location is difficult to exclude.� Nonspecific fluid in the distal esophagus likely secondary to the distended stomach.� Remaining duodenum and small bowel are normal in caliber.'
- NGT Placed; continue decompression
- GI following for EGD today; s/p pylorous dilation. now on fulls. GI following
- pain control, anti-emetics
- PPI BID
Recent C. Diff infection
- complete 14 day Vanco course 1.5 months ago
- monitor for diarrhea
Parox Afib/Aflutter
- goes in and out of A. Fib/atach on tele here; episode of dizziness
- only rate controlled on oral Metoprolol; cardiology following. Metoprolol increased to 50 mg twice daily
- not on ASA or OAC (CHADSvasc 1) per mutual discussion with his outpatient Track Manager Dr. Guaman. His next appointment is late November.
Hypokalemia
now improved
DVT ppx: Lovenox
Code: Full
General: No Apparent Distress
HEENT: Normocephalic and Atraumatic
Respiratory: Negative Wheezes or Rales
Cardiac: regular Rhythm
GI: Soft
Genito-urinary: No Costovertebral Tender
Neuro: AO x 3
Psych: Calm
Anticipated Discharge: Today
Subjective/Interval History
-
Date of Service: November 11, 2023
denies dizziness today
Objective Data
-
Labs:
Laboratory Results
11/11/23
04:47
WBC 4.6 L
Hgb 14.4
Hct 41.0
Plt Count 187
Sodium 137
Potassium 4.3 D
Chloride 101
Carbon Dioxide 30
BUN 5 L
Creatinine 0.6 L
Glucose 89
Calcium 8.7
Total Bilirubin 1.2
AST 24
ALT 17
Alkaline Phosphatase 59
Vital Signs:
Vital Signs
Temp Pulse Resp BP Pulse Ox
97.5 F 82 18 116/74 98
11/11/23 07:09 11/11/23 08:58 11/11/23 07:09 11/11/23 08:58 11/11/23 07:09
I&O
11/10/23 11/11/23 11/12/23
06:59 06:59 06:59
Intake Total 120 / 120 1210 / 1210
Output Total 2 / 2
Balance 120 / 120 1208 / 1208
--- NOTE | 2023-11-11 11:20 | W.PN.GI.CBS2 ---
Today's Communication / Plan
-
PPI BID x3mo
Adv to low residue diet
OP FU with Dr Yu will be arranged
GI will sign off please call for questions
Assessment / Plan
-
The patient is a 68-year-old male with a past medical history significant for proximal atrial fibrillation not on anticoagulation, hypertriglyceridemia, glaucoma, GERD, recent Cdiff infection, who presented to the ER after transfer from [place] [facility] for evaluation of gastric outlet obstruction, which we are being asked to evaluate for. Recent evaluation in the GI office for abdominal pressure, forced regurgitation, and gassiness, pending OP GES and EGD, had recurrent symptoms after
eating lunch on Wednesday with development of severe pain which is new. CT imaging was done at [place] where he was initially evaluation, which showed a dilated stomach (per hospitalist notes). He had an NG tube placed for decompression and he feels
much improved. No further reports of pain. Labs are essentially WNL.
EGD with dilation 11/09/23, Dr. Yu:
Findings:
�� � LA Grade C (one or more mucosal breaks continuous between tops of 2 or
�� � more mucosal folds, less than 75% circumference) esophagitis was found
�� � in the lower third of the esophagus.
�� � A benign-appearing, intrinsic severe stenosis was found at the pylorus.
�� � This was traversed after downsizing the scope to pediatric gastroscope.
�� � Biopsies were taken with a cold forceps for histology. A TTS dilator was
�� � passed through the scope. Dilation with a 6-7-8 mm, a 10-11-12 mm and a
�� � 12-13.5-15 mm pyloric balloon dilator was performed. The adult
�� � gastroscope was able to traverse the pylorus after.
�� � The duodenal bulb, first portion of the duodenum and second portion of
�� � the duodenum were normal.
�� � � � � � � � � � � � � � � � � � � � � � � � � � � � � � � � � � � � � � �
Impression:� � � � � � - LA Grade C reflux esophagitis.
�� � � � � � � � � � � - Gastric stenosis was found at the pylorus. Biopsied.
�� � � � � � � � � � � Dilated.
�� � � � � � � � � � � - Normal duodenal bulb, first portion of the duodenum
�� � � � � � � � � � � and second portion of the duodenum.
Recommendation:� � � � - Return patient to [facility] for ongoing care.
�� � � � � � � � � � � - Full liquid diet today.
�� � � � � � � � � � � - Use Protonix (pantoprazole) 40 mg PO BID.
�� � � � � � � � � � � - Await pathology results.
�� � � � � � � � � � � - Return to GI office in 3 weeks.
Problem list:
-gastric outlet obstruction
-abdominal pressure/bloating/early satiety
-weight loss
-recent C-diff infection
-hx GERD
-elevated TB with normal DB
-glaucoma
-Afib (not on AC)
-s/p CCY
Recommendations:
-EGD 11/[address] Yu showed intrinsic severe pyloric stenosis, which was dilated to 15mm, as well as LA Grade C esophagitis. Biopsies pending.
-Tolerating FLD, advanced to low residue diet today
-Continue PPI BID, will need x3mo then daily afterwards
-Ok from GI perspective for hosp d/c if tolerates diet.
- Will arrange OP FU with Dr Yu in GI office
Will sign off please call for questions
Subjective
Subjective
Date of Service: November 11, 2023
Tolerating FLD without nausea, vomiting or abd pain.
Objective
Data Reviewed
Laboratory Data:
Laboratory Results
11/11/23 04:47
11/11/23 04:47
Laboratory Results
Magnesium 1.9 mg/dl (1.6-2.3) 11/10/23 05:15
Total Bilirubin 1.2 mg/dl (0.2-1.3) 11/11/23 04:47
AST 24 U/L (17-59) 11/11/23 04:47
ALT 17 U/L (0-50) 11/11/23 04:47
Alkaline Phosphatase 59 U/L (38-126) 11/11/23 04:47
Vital Signs and I&O:
Vital Signs
Temp Pulse Resp BP Pulse Ox
97.5 F 82 18 116/74 98
11/11/23 07:09 11/11/23 08:58 11/11/23 07:09 11/11/23 08:58 11/11/23 07:09
I&O
11/10/23 11/11/23 11/12/23
06:59 06:59 06:59
Intake Total 120 / 120 1210 / 1210
Output Total /
Balance 120 / 120 1208 / 1208
Physical Exam
Physical Exam
GEN: No acute distress, conversant, pleasant
HEENT: anicteric, extraocular movements intact, clear oropharynx without exudates
GI: soft, non-distended, not tender to palpation, normal active bowel sounds, no hepatosplenomegaly
EXT: warm, well perfused, no edema bilaterally
NEURO: AAOx3, non-focal
[2023-11-11 12:33] VITALS: BP 112/65
--- NOTE | 2023-11-11 13:20 | W.DCSUMMARY ---
Discharge Summary
Discharge Data
Date of Admission: 11/07/23
Date of Discharge: 11/11/23
-
Pending Results: Yes
Hospital Course
68-year-old male with past medical history of recent C. difficile, paroxysmal A-fib/a flutter, glaucoma, GERD came to the hospital from [facility] as a transfer for advanced endoscopic evaluation. CT scan at [facility] showed dilated
stomach with normal caliber small bowel concerning for gastric outlet obstruction. Patient was seen by gastroenterology here and was taken for EGD with pylorus dilation. Patient was able to tolerate low residue diet prior to the discharge.
Patient was also instructed to continue PPI twice daily for at least 3 months. While patient was in the hospital he was going in and out of A-fib/atrial tachycardia for which she was seen by cardiology. His metoprolol dose was increased on this
hospitalization. Cardiology instructed patient to follow-up with them outpatient. Once patient's symptoms improved and he was able to tolerate diet, he was then discharged home with instructions to follow-up with all his physicians outpatient.
Discharge Plan
-
Patient Disposition: Home (Routine Discharge)
Discharge Diagnosis/Procedures: Gastric outlet obstruction
Paroxysmal atrial fibrillation/atrial flutter
Hypokalemia
Diet: Low Residue
Activity: As tolerated
Driving Restrictions: As prior to admission
Bathing Restrictions: None
Activity Restrictions/Additional Instructions:
Need to take oral Protonix 40 mg twice daily for at least 3 months
Referrals:
Per Yu MD [Active] - (12/09 at 1130am with Robina Shaw with Dr Yu for gastric outlet obstruction)
John Guaman MD [Active] -
UNKNOWN - PT NOT,INTERVIEWE [Family Provider] - in less than 1 week
Prescriptions:
New
metoprolol tartrate 50 mg Tablet
50 mg PO BID Qty: 60 0RF
pantoprazole [Protonix] 40 mg tablet,delayed release (DR/EC)
40 mg PO BID Qty: 60 0RF
Continued
ferrous sulfate 325 mg (65 mg iron) Tablet
325 mg PO DAILY
brimonidine-timolol 0.2-0.5 % Drops
1 drp OPHTHALMIC (EYE) BID
Rhopressa 0.02 % Drops
1 drp OPHTHALMIC (EYE) QPM
Discontinued
metoprolol tartrate [Lopressor] 50 mg Tablet
25 mg PO BID
omeprazole [Prilosec] 20 mg Capsule,Delayed Release(Dr/Ec)
20 mg PO DAILY
Discharge Orders:
Discharge Patient (As Directed); Ordered 11/11/23
Ordered By: Montez Chávez
Discharge Date and Time
Discharge Date/Time: 11/11/23 15:12
[2023-11-11] MEDS: PREVNAR 20 0.5 ML IM (13:42)
--- NOTE | 2023-11-11 14:27 | CM ---
Chart reviewed. Spoke with pt at bedside
Pt for d/c today pending tolerating po intake
Reports has ride home
IMM reviewed
Plan - d/c to home - no needs when medically ready
[2023-11-11] MEDS: FLUZONE HIGH-DOSE QUAD 2023-24 0.699999999999999956 ML IM (14:32)
== END 2023-11-11 15:12 | disposition home or self-care (01) | DRG 381 ==
LOC: 2 SOUTH 19:28
PROVIDERS: Internal Medicine Gastroenterology; ADMITTING PHYSICIAN Internal Medicine; ATTENDING PHYSICIAN Internal Medicine; CONSULT PHYSICIAN Internal Medicine Cardiovascular Disease; CONSULT PHYSICIAN Internal Medicine Gastroenterology
PROC: 0D9670Z Drainage of Stomach with Drainage Device, Via Natural or Artificial Opening (ICD-10-PCS; 2023-11-07)
PROC: 0DB78ZX Excision of Stomach, Pylorus, Via Natural or Artificial Opening Endoscopic, Diagnostic (ICD-10-PCS; 2023-11-09)
PROC: 0D768DZ Dilation of Stomach with Intraluminal Device, Via Natural or Artificial Opening Endoscopic (ICD-10-PCS; 2023-11-09)
PROC: 3E0234Z Introduction of Serum, Toxoid and Vaccine into Muscle, Percutaneous Approach (ICD-10-PCS; 2023-11-11)
PROC: 3E02340 Introduction of Influenza Vaccine into Muscle, Percutaneous Approach (ICD-10-PCS; 2023-11-11)
DX: K31.1 Adult hypertrophic pyloric stenosis (principal); A04.72 Enterocolitis due to Clostridium difficile, not specified as recurrent; I47.19 Other supraventricular tachycardia; I48.92 Unspecified atrial flutter; I48.0 Paroxysmal atrial fibrillation; E78.1 Pure hyperglyceridemia; H40.9 Unspecified glaucoma; K21.00 Gastro-esophageal reflux disease with esophagitis, without bleeding; N40.0 Benign prostatic hyperplasia without lower urinary tract symptoms; R21 Rash and other nonspecific skin eruption; E87.6 Hypokalemia; K76.89 Other specified diseases of liver; R51.9 Headache, unspecified; R00.2 Palpitations; Z80.0 Family history of malignant neoplasm of digestive organs; Z88.8 Allergy status to other drugs, medicaments and biological substances; Z91.013 Allergy to seafood; Z23 Encounter for immunization; Z87.891 Personal history of nicotine dependence
CPT/HCPCS: 88305; 74018; 80053; 82248; 83735; 85025; 90662; 90677; 93005; C1726; G0008; G0009

== ENCOUNTER → 2024-03-09 06:35 | Day surgery (SDC) | payer MEDICARE, OTHER, SELFPAY | LOC: GI 06:35 | PROVIDERS: ATTENDING PHYSICIAN Internal Medicine Gastroenterology; FAMILY PHYSICIAN Family Medicine | DX: K31.1 Adult hypertrophic pyloric stenosis (principal) | CPT/HCPCS: 43235 ==

== ENCOUNTER → 2024-03-30 06:18 | Day surgery (SDC) | payer MEDICARE, OTHER, SELFPAY ==
[2024-03-30 12:08] VITALS: BMI 23.9
[2024-03-30 12:11] VITALS: BMI 23.9
[2024-03-30 12:13] VITALS: BP 153/83
[2024-03-30 15:19] VITALS: BP 93/57
[2024-03-30 15:30] VITALS: BP 126/66
[2024-03-30 15:45] VITALS: BP 126/69
== END ==
LOC: SDS 06:18
PROVIDERS: ATTENDING PHYSICIAN Internal Medicine Gastroenterology
DX: K31.1 Adult hypertrophic pyloric stenosis (principal)
CPT/HCPCS: 43245; C1726

== ENCOUNTER 2024-05-04 06:27 | Day surgery (SDC) | payer MEDICARE, SELFPAY ==
[2024-05-04 12:28] VITALS: BMI 23.9
[2024-05-04 12:29] VITALS: BP 144/76; BMI 23.9
[2024-05-04 14:12] VITALS: BP 99/57
[2024-05-04 14:15] VITALS: BP 108/62
[2024-05-04 14:30] VITALS: BP 117/68
[2024-05-04 14:45] VITALS: BP 127/68
== END 2024-05-04 15:10 | disposition home or self-care (01) ==
LOC: SDS 06:27
PROVIDERS: ATTENDING PHYSICIAN Internal Medicine Gastroenterology
DX: K31.1 Adult hypertrophic pyloric stenosis (principal)
CPT/HCPCS: 43245; 43236; C1726

== ENCOUNTER → 2024-10-17 09:48 | Outpatient (REF) | payer MEDICARE, OTHER, SELFPAY | LOC: RAD 09:48 | PROVIDERS: ATTENDING PHYSICIAN Surgery; FAMILY PHYSICIAN Family Medicine | DX: K31.1 Adult hypertrophic pyloric stenosis (principal) | CPT/HCPCS: 74246 ==

== ENCOUNTER 2024-12-27 06:35 | Day surgery (SDC) | payer MEDICARE, OTHER, SELFPAY ==
[2024-12-27 09:35] VITALS: BP 157/86; BMI 24.5
[2024-12-27 09:48] VITALS: BMI 24.5
[2024-12-27 11:42] VITALS: BP 90/57
[2024-12-27 11:45] VITALS: BP 94/64
[2024-12-27 12:00] VITALS: BP 112/68
[2024-12-27 12:10] VITALS: BP 116/72
== END 2024-12-27 12:20 | disposition home or self-care (01) ==
LOC: SDS 06:35
PROVIDERS: ATTENDING PHYSICIAN Internal Medicine Gastroenterology
DX: K31.1 Adult hypertrophic pyloric stenosis (principal); K31.5 Obstruction of duodenum; K31.89 Other diseases of stomach and duodenum; K92.9 Disease of digestive system, unspecified
CPT/HCPCS: 43242